=== PATIENT | female | born 1945 | race African-American/Black ===

== ENCOUNTER 2017-01-31 06:05 | Day surgery (SDC) | payer OTHER, MEDICARE ==
--- NOTE | ~2017-01-31 | EGD ---
EGD REPORT [facility] [address] [id number] NAME: MERLE MULLINS : [birth year] STATUS : [place] [facility] [place]#: [id number] AGE: 71 ADM/REG DATE : 01/31/17 MR#: [id number] REPORT SERV DATE: 01/31/17 DICTATED BY: PACHECO BAHENA DATE: 01/31/17 REPORT STATUS : Draft TRANS[facility]IBED BY: [facility] DATE: 01/31/17 [facility] Patient Name: Merle Mullins Date of : 1945 Attending MD: PACHECO BAHENA MD Procedure Date No Time: 01/31/2017 Procedure: Colonoscopy Indications: Screening for colorectal malignant neoplasm, Last colonoscopy: 2004 Referring MD: DAVIDA DAS Medicines: See the Anesthesia note for documentation of the administered medications Complications: No immediate complications. Procedure: Pre-Anesthesia Assessment: - ASA Grade Assessment: II - A patient with mild systemic disease. After I obtained informed consent, the scope was passed under direct vision. Throughout the procedure, the patient's blood pressure, pulse, and oxygen saturations were monitored continuously. The PCF [id number] was introduced through the anus and advanced to the terminal ileum, with identification of the appendiceal orifice and IC valve. The colonoscopy was performed without difficulty. The patient tolerated the procedure well. The quality of the bowel preparation was adequate. Findings: The perianal and digital rectal examinations were normal. Diverticula were found in the entire colon. Internal hemorrhoids were found during retroflexion and were small. A sessile polyp was found in the cecum. The polyp was small in size. The polyp was removed with a cold biopsy forceps. Resection and retrieval were complete. Small polyp at anal verge, The polyp was removed with a cold biopsy forceps. Resection and retrieval were complete. Impression: - Diverticulosis in the entire examined colon. - Internal hemorrhoids. - One small polyp in the cecum. Resected and retrieved. - Small polyp at anal verge Recommendation: - Patient has a contact number available for emergencies. The signs and symptoms of potential delayed complications were discussed with the patient. Return to normal activities tomorrow. Written discharge EGD REPORT [address] [id number] NAME: MERLE MULLINS : [birth year] STATUS : [place] [facility] [place] PAT#: [id number] AGE: 71 ADM/REG DATE : 01/31/17 MR#: [id number] REPORT SERV DATE: 01/31/17 DICTATED BY: PACHECO BAHENA DATE: 01/31/17 REPORT STATUS : Draft TRANSCRIBED BY: [email or web address] DATE: 01/31/17 instructions were provided to the patient. - Regular diet. - Continue present medications. - Repeat colonoscopy for surveillance based on pathology results. - FOR YOUR BIOPSY RESULTS: Please go to [email or web address] and register to receive your results via the portal. Your biopsy results will be posted there in about 7 to 10 days. IF you do not see result in 10 days, call office. Procedure Code(s): --- Professional --- 77275, Colonoscopy, flexible, proximal to splenic flexure; with biopsy, single or multiple Diagnosis Code(s): --- Professional --- K64.8, Other hemorrhoids K57.30, Diverticulosis of large intestine without perforation or abscess without bleeding D12.0, Benign neoplasm of cecum Z12.11, Encounter for screening for malignant neoplasm of colon CPT copyright 2013 [employer]. All rights reserved. The codes documented in this report are preliminary and upon clinic director review may be revised to meet current compliance requirements. Pacheco Bahena MD PACHECO BAHENA MD 01/31/2017 8:07 AM This report has been signed electronically. Number of Addenda: 0 Note Initiated On: 01/31/2017 7:44 AM Scope Withdrawal Time 0 hours 9 minutes 43 seconds [address] [id number]
[~2017-01-31 06:05] MED LIST: ACET500CAP PO; ALLEGRA180 PO; ASAB PO; CIP5 PO; FLAG500TAB PO; MAX25 PO; MIRALAXPKT PO; NAP500 PO; NEUR300 PO; NORV5 PO; OXYCOD PO; PREM.3B PO; TOPXL25 PO; ZOCOR40 PO; ZOFRAN4 PO
== END 2017-01-31 23:59 | disposition home or self-care (01) ==
LOC: DMU 06:05
PROVIDERS: Internal Medicine Gastroenterology
PROC: 0DBH8ZX Excision of Cecum, Via Natural or Artificial Opening Endoscopic, Diagnostic (ICD-10-PCS; 2017-01-31)
PROC: 0DBQ8ZX Excision of Anus, Via Natural or Artificial Opening Endoscopic, Diagnostic (ICD-10-PCS; principal; 2017-01-31 08:00)
DX: Z12.11 Encounter for screening for malignant neoplasm of colon (principal); D12.0 Benign neoplasm of cecum; K64.8 Other hemorrhoids; K57.30 Diverticulosis of large intestine without perforation or abscess without bleeding; I25.10 Atherosclerotic heart disease of native coronary artery without angina pectoris; I10 Essential (primary) hypertension; E78.00 Pure hypercholesterolemia, unspecified; Z90.49 Acquired absence of other specified parts of digestive tract; Z90.710 Acquired absence of both cervix and uterus; Z98.890 Other specified postprocedural states
CPT/HCPCS: 88305